=== PATIENT | female | born 1980 | race Caucasian/White ===

== ENCOUNTER 2019-05-08 18:33 | Emergency (ER) | payer BC ==
[2019-05-08 19:13] VITALS: BP 125/78
--- NOTE | 2019-05-08 19:46 | UC ---
Ear Complaint HPI - HPI Summary HPI Summary: 38-year-old female presents with complaints of 1 day history of left ear pain. States uses Q-tips to clean ears on a regular basis but denies any known injury. Denies fever, chills, ear discharge, hearing loss, tinnitus, vertigo, or URI symptoms. - History of Current Complaint Chief Complaint: UCEar Stated Complaint: EAR PAIN Time Seen by Provider: 05/08/19 19:31 Hx Obtained From: Patient Hx Last Menstrual Period: 04/29/19 Pain Intensity: 5 - Allergies/Home Medications Allergies/Adverse Reactions: Allergies Allergy/AdvReac Type Severity Reaction Status Date / Time No Known Allergies Allergy Verified 05/08/19 19:13 PMH/Surg Hx/FS Hx/Imm Hx Previously Healthy: Yes - Denies significant PMH - Surgical History Surgical History: Yes Surgery Procedure, Year, and Place: 2 c-sections - Family History Known Family History: Positive: Hypertension Negative: Cardiac Disease, Respiratory Disease, Blood Disorder - Social History Occupation: Employed Full-time Lives: Alone Alcohol Use: None Substance Use Type: None Smoking Status (MU): Never Smoked Tobacco Review of Systems All Other Systems Reviewed And Are Negative: Yes Constitutional: Negative: Fever, Chills Eyes: Negative: Drainage, Eye Redness ENT: Positive: Ear Ache. Negative: Sore Throat, Nasal Discharge, Sinus Congestion, Sinus Pain/Tenderness Respiratory: Positive: Negative Cardiovascular: Positive: Negative Gastrointestinal: Positive: Negative Genitourinary: Positive: Negative Musculoskeletal: Positive: Negative Neurological: Positive: Negative Is Patient Immunocompromised?: No Physical Exam - Summary Physical Exam Summary: GENERAL APPEARANCE: Well developed, well nourished, alert and cooperative, and appears to be in no acute distress. EYES: Conjunctiva clear. No drainage. EARS: Right external auditory canal clear and tympanic membrane intact, opaque, with good cone of light. Left external auditory canal with mild erythema and edema, TM intact, opaque, with good cone of light. Hearing grossly intact. NOSE: No nasal discharge. THROAT: Pharynx normal. 2+ tonsils without erythema, exudate, or lesions. Uvula midline. NECK: Neck supple, non-tender without lymphadenopathy. CARDIAC: Normal S1 and S2. No S3, S4 or murmurs. Rhythm is regular. There is no peripheral edema, cyanosis or pallor. Extremities are warm and well perfused. Capillary refill is less than 2 seconds. Peripheral pulses intact. LUNGS: Clear to auscultation without rales, rhonchi, wheezing or diminished breath sounds. ABDOMEN: Positive bowel sounds. Soft, nondistended, nontender. No guarding or rebound. No masses or hepatosplenomegally. MUSKULOSKELETAL: ROM intact to all extremities. No joint erythema or tenderness. Normal muscular development. Normal gait. SKIN: Skin normal color, texture and turgor with no lesions or eruptions. Triage Information Reviewed: Yes Vital Signs: Initial Vital Signs Temp 97.7 F 05/08/19 19:10 Pulse 95 05/08/19 19:10 Resp 17 05/08/19 19:10 BP 125/78 05/08/19 19:10 Pulse Ox 98 05/08/19 19:10 Vital Signs Reviewed: Yes Ear Complaint Course/Dx - Course Course Of Treatment: 38-year-old female presents with complaints of 1 day history of left ear pain. States uses Q-tips to clean ears on a regular basis but denies any known injury. Denies fever, chills, ear discharge, hearing loss, tinnitus, vertigo, or URI symptoms. Afebrile. Vital signs stable. On exam patient was noted to have mild erythema and edema of the left external auditory canal with an intact , opaque, TM with good cone of light and otherwise unremarkable exam. Will treat for a mild external otitis with neomycinpolymyxin Bhydrocortisone drops 4 drops into the affected ear 4 times a day 7 days as well as [id number] analgesics. She is to follow-up with her primary care provider in 3-5 days symptoms are not improving. Anticipatory guidance and warning symptoms were reviewed with the patient. Verbalizes understanding and agrees with plan of care. - Differential Dx/Diagnosis Differential Diagnosis/HQI/PQRI: Otitis Externa, Otitis Media, Perforated TM, URI Provider Diagnosis: External otitis of left ear Discharge ED - Sign-Out/Discharge Documenting (check all that apply): Patient Departure All imaging exams completed and their final reports reviewed: No Studies - Discharge Plan Condition: Stable Disposition: HOME Prescriptions: Neomyc/Polym/HC 1% OTIC SUSP* [Cortisporin Otic Susp 1%*] 4 drop LEFT EAR QID # 1 btl Patient Education Materials: Otitis Externa (ED) Referrals: Fina Ortiz MD [Primary Care Provider] - 3 Days Additional Instructions: Your exam is consistent for an infection of the ear canal cause otitis externa. We will start to on an antibiotic eardrop with a steroid to help with the infection and pain. Start neomycinpolymyxin Bhydrocortisone otic drops. Instill 4 drops into the left ear 4 times a day for 7 days. Avoid getting water in the air or placing anything inside the ear canal. Using [id number] pain medication such as acetaminophen (Tylenol) or ibuprofen (Advil, Motrin) according directions as needed for pain. Follow-up with your primary care provider in 3-5 days if symptoms are not improving. Seek immediate medical attention in the emergency room if you develop severe pain that is not managed with pain medication, have loss of hearing, drainage or blood from the ear, or any worsening of symptoms. - Billing Disposition and Condition Condition: STABLE Disposition: Home
== END 2019-05-08 19:59 | disposition home or self-care (01) ==
LOC: UCCORT 18:33
DX: H60.92 Unspecified otitis externa, left ear (principal)
CPT/HCPCS: 99202; G0463

== ENCOUNTER 2019-10-18 08:11 | Emergency (ER) | payer BC ==
[2019-10-18 08:25] VITALS: BP 124/88
--- NOTE | 2019-10-18 08:50 | UC ---
Abdominal Pain Female HPI - HPI Summary HPI Summary: 38 yr old female with abdominal pain. Central abdominal pain, fever and chills all night long. Pt denies n/v/d. Pt describes the abd pain as constant and dull with intermittent sharp pains, also. patient states since in the upper abdomen. She has felt a toothache sensation about any where between A for up to a 7 out of 10 for pain. No nausea or vomiting. Normal bowel movements have been occurring. No diarrhea. She did have a fever of 102 last night. She is feeling more fatigued. No history of ulcers. No history of anti-inflammatory use. No recent antibiotics. Nothing improves symptoms. Nothing worsened symptoms. - History of Current Complaint Chief Complaint: UCAbdominalPain Stated Complaint: FEVER BACK/STOMACH PAIN Time Seen by Provider: 10/18/19 08:48 Hx Obtained From: Patient Hx Last Menstrual Period: 09/17/19 Pain Intensity: 4 Aggravating Factor(s): Nothing Alleviating Factor(s): Nothing Allergies/Adverse Reactions: Allergies Allergy/AdvReac Type Severity Reaction Status Date / Time No Known Allergies Allergy Verified 10/18/19 08:21 Home Medications: Home Medications Acetaminophen [Tylenol] 2 tab PO ONCE 10/18/19 [History Confirmed 10/18/19] PMH/Surg Hx/FS Hx/Imm Hx Previously Healthy: Yes - Surgical History Surgical History: Yes Surgery Procedure, Year, and Place: c-sections x2 - Family History Known Family History: Positive: Hypertension Negative: Cardiac Disease, Respiratory Disease, Blood Disorder - Social History Alcohol Use: None Substance Use Type: None Smoking Status (MU): Never Smoked Tobacco Review of Systems All Other Systems Reviewed And Are Negative: Yes Gastrointestinal: Positive: Abdominal Pain Physical Exam Triage Information Reviewed: Yes Appearance: No Pain Distress Vital Signs: Initial Vital Signs Temp 97 F 10/18/19 08:22 Pulse 99 10/18/19 08:22 Resp 20 10/18/19 08:22 BP 124/88 10/18/19 08:22 Pulse Ox 98 10/18/19 08:22 Vital Signs Reviewed: Yes Eye Exam: Normal ENT Exam: Normal Dental Exam: Normal Neck exam: Normal Neck: Positive: 1 Respiratory Exam: Normal Cardiovascular Exam: Normal Abdominal Exam: Normal Abdomen Description: Positive: No Organomegaly, Soft, Other: - minimal midepigastric tenderness to deep palpation. Negative: CVA Tenderness (R), CVA Tenderness (L), Distended, Guarding, Hernia @, McBurney's Point Tenderness, Peritoneal Signs, Pulsatile Mass, Splenomegaly Musculoskeletal Exam: Normal Neurological Exam: Normal Psychological Exam: Normal Skin Exam: Normal Abd Pain Female Course/Dx - Course Course Of Treatment: patient with mild midepigastric tenderness to palpation of the abdomen. Likely a gastritis. She has not started any medication besides some Tums. Start a proton pump inhibitor and avoid triggers like it irritates stomach. I told patient that we are limited with her ability to evaluate for abdominal pain in the urgent care setting. Advised patient if symptoms do not improve or worsen to go directly to the emergency room for higher level of care. She is oriented to plan as well as the side effects of medication. neg for flu advised high dose PPI PADMINI since she refused to go to ED as I advised. she states if she feels worsened she will go to ED but does not want to go there and wait around she is aware she cuold have ulcer / bleed/ infection and aware of risks of delayed Dx by not going to ED - Differential Dx/Diagnosis Differential Diagnosis: Appendicitis, Bowel Obstruction, Constipation, Diverticulitis, Gall Bladder Disease, Irritable Bowel Syndrome Provider Diagnosis: Midepigastric pain, Gastritis Discharge ED - Sign-Out/Discharge Documenting (check all that apply): Patient Departure All imaging exams completed and their final reports reviewed: No Studies - Discharge Plan Condition: Good Disposition: HOME Patient Education Materials: Gastritis (ED) Forms: *Work Release Referrals: Fina Ortiz MD [Primary Care Provider] - 1 Day Additional Instructions: as we discussed if symptoms persist or worsen go directly to emergency room. At this time he would like to defer I'm going to emergency room. Please start Nexium or Prilosec immediately. I would advise 40 mg twice daily for 2-3 days then reduce it down to 1 pill of 20 mg twice daily for 2-3 days then after that discontinue medication. Please follow up with her primary care doctor in the meantime. - Billing Disposition and Condition Condition: GOOD Disposition: Home
[2019-10-18 09:15] LABS: Influenza A Molecular Negative (Negative); Influenza B Molecular Negative (Negative)
== END 2019-10-18 09:27 | disposition home or self-care (01) ==
LOC: UCCORT 08:11
DX: K29.70 Gastritis, unspecified, without bleeding (principal); R10.13 Epigastric pain
CPT/HCPCS: 93005; 99212; G0463